=== PATIENT | female | born 1935 | race Caucasian/White ===

== ENCOUNTER 2018-07-15 19:42 | Inpatient (IN) | payer MEDICARE, OTHER ==
[~2018-07-15] VITALS: Ht 162.6 cm; Wt 66.3 kg
[2018-07-15] MEDS ORDERED: PANTOPRAZOLE 80 MG in SODIUM CHLORIDE 0.9% 50 ML IVPB ONE (19:49)
[2018-07-15] MEDS ORDERED: PLEASE ENTER ALLERGIES MC SCH (20:00)
[2018-07-15] MEDS ORDERED: PLEASE ENTER HEIGHT AND WEIGHT MC SCH (20:00)
[2018-07-15] MEDS ORDERED: PANTOPRAZOLE 80 MG in SODIUM CHLORIDE 0.9% 100 ML IV SCH (20:00)
[2018-07-15] MEDS ORDERED: SODIUM CHLORIDE FLUSH 10ML SYR IVF ONE (20:00)
--- NOTE | 2018-07-15 20:00 | NUR ---
BIB [facility] [place] [facility] FOR DARK TARRY STOOLS THAT STARTED THIS AFTERNOON. DENIES ANY VOMITING OF BLOOD. PT SAYS SHE HAS HAD 7 TARRY STOOLS TODAY. SHE GETS HOT AND FEELS LIKE SHE IS GOING TO PASS OUT WITH EACH BOWEL MOVEMENT. PT DOES HAVE BRUISE UNDER LEFT BREAST FROM FALL INTO DRESSER AT HOME.
[2018-07-15] MEDS ORDERED: CLOP75TA52 PO (20:13)
[2018-07-15] MEDS ORDERED: ASPI-515 PO (20:13)
[2018-07-15] MEDS ORDERED: METO25TA35 PO (20:13)
[2018-07-15] MEDS ORDERED: GABA300C10 PO (20:13)
[2018-07-15] MEDS ORDERED: HYDR-3241 PO (20:13)
[2018-07-15] MEDS ORDERED: OMEP-110 PO (20:13)
[2018-07-15] MEDS ORDERED: LEVO88TA4 PO (20:13)
[2018-07-15] MEDS ORDERED: LISI5TAB PO (20:13)
[2018-07-15] MEDS ORDERED: CITA20TA9 PO (20:13)
--- NOTE | 2018-07-15 20:21 | NUR ---
PT HAD MEDIUM DARK LOOSE STOOL. FEELS HOT AND LIGHT HEADED. ASSIST X2 BACK TO BED. PIV PLACED AND PROTONIX DRIP STARTED. VSS. LAB WORK COLLECTED
--- NOTE | 2018-07-15 20:30 | NUR ---
PT MEDICATED PER [facility] WITH PROTONIX BOLUS FOLLOWED BY GTT. VSS. UPDATED ON POC.
[2018-07-15 20:31] LABS: BASOPHILS # (AUTO) 0.11 x10^3/uL (0-0.1); BASOPHILS % (AUTO) 1 % (0-1); EOSINOPHILS # (AUTO) 0.06 x10^3/uL (0-0.4); EOSINOPHILS % (AUTO) 1 % (1-7); LYMPHOCYTES # (AUTO) 1.87 x10^3/uL (1-3.4); LYMPHOCYTES % (AUTO) 16 % (22-44); MD NO; MEAN CORPUSCULAR HEMOGLOBIN 31.1 pg (27.0-34.8); MEAN CORPUSCULAR HGB CONC 32.5 g/dL (32.4-35.8); MEAN CORPUSCULAR VOLUME 95.5 fL (80-100); MEAN PLATELET VOLUME 8.6 fL (7.4-10.4); MONOCYTES # (AUTO) 0.58 x10^3/uL (0.2-0.8); MONOCYTES % (AUTO) 5 % (2-9); NEUTROPHILS # (AUTO) 9.09 x10^3/uL (1.8-6.8); NEUTROPHILS % (AUTO) 78 % (42-75); PLATELET COUNT 274 x10^3/uL (130-400); RED CELL DISTRIBUTION WIDTH 14.5 % (9.6-15.2)
[2018-07-15 20:41] LABS: INTERNATIONAL NORMALIZED RATIO 1.06 (0.93-1.1); PROTHROMBIN TIME 11.1 Seconds (9.6-11.5)
[2018-07-15 20:42] LABS: ALANINE AMINOTRANSFERASE 46 U/L (12-78); ALBUMIN 3.8 g/dL (3.4-5.0); ANION GAP 8 mmol/L (5-15); CALCIUM 8.9 mg/dL (8.5-10.1); CHLORIDE 102 mmol/L (98-107); CREATININE 1.07 mg/dL (0.55-1.02); IRON LEVEL 297 mcg/dL (50-170)
[2018-07-15 20:45] LABS: % IRON SATURATION 91 % (20-55); ALKALINE PHOSPHATASE 103 U/L (45-117); BILIRUBIN,TOTAL 0.3 mg/dL (0.2-1.0); TOTAL IRON BINDING CAPACITY 327 mcg/dL (250-450); TOTAL PROTEIN 7.3 g/dL (6.4-8.2)
--- NOTE | 2018-07-15 21:46 | NUR ---
REPORT GIVEN TO ALEXANDR NYE.
[2018-07-15] MEDS: SODIUM CHLORIDE 0.9% 1,000 ML IV SCH (21:50)
[2018-07-15] MEDS ORDERED: hydrALAzine 20 MG/ML, 1ML IVPush PRN (22:00)
[2018-07-15 22:12] VITALS: BP 111/73
[2018-07-15] MEDS ORDERED: VIT1TABL34 PO (23:11)
[2018-07-16] MEDS: LORazepam 2 MG/ML, 1ML IVPush PRN ×2 (00:05→22:59)
[2018-07-16 02:40] VITALS: BP 101/67
[2018-07-16] MEDS: SODIUM CHLORIDE 0.9% 1,000 ML IV SCH ×2 (05:05→16:49)
[2018-07-16 05:44] LABS: BASOPHILS # (AUTO) 0.06 x10^3/uL (0-0.1); BASOPHILS % (AUTO) 1 % (0-1); EOSINOPHILS # (AUTO) 0.07 x10^3/uL (0-0.4); EOSINOPHILS % (AUTO) 1 % (1-7); LYMPHOCYTES # (AUTO) 2.82 x10^3/uL (1-3.4); LYMPHOCYTES % (AUTO) 31 % (22-44); MD NO; MEAN CORPUSCULAR HEMOGLOBIN 31.3 pg (27.0-34.8); MEAN CORPUSCULAR HGB CONC 32.8 g/dL (32.4-35.8); MEAN CORPUSCULAR VOLUME 95.4 fL (80-100); MEAN PLATELET VOLUME 8.9 fL (7.4-10.4); MONOCYTES % (AUTO) 8 % (2-9); NEUTROPHILS # (AUTO) 5.37 x10^3/uL (1.8-6.8); NEUTROPHILS % (AUTO) 60 % (42-75); PLATELET COUNT 266 x10^3/uL (130-400); RED BLOOD COUNT 3.87 x10^6/uL (3.82-5.3); RED CELL DISTRIBUTION WIDTH 14.8 % (9.6-15.2)
[2018-07-16] MEDS: PANTOPRAZOLE 80 MG in SODIUM CHLORIDE 0.9% 100 ML IV SCH ×2 (05:46→16:49)
[2018-07-16 05:55] LABS: ANION GAP 8 mmol/L (5-15); CALCIUM 8.9 mg/dL (8.5-10.1); CHLORIDE 103 mmol/L (98-107)
[2018-07-16 05:57] LABS: CREATININE 0.99 mg/dL (0.55-1.02)
[2018-07-16 08:30] VITALS: BP 109/67
[2018-07-16] MEDS ORDERED: MIDAZOLAM 1 MG/ML, 5ML ONE (09:15)
[2018-07-16] MEDS ORDERED: FENTANYL PF 100 MCG/2ML ONE (09:15)
[2018-07-16] MEDS ORDERED: EPINEPHRINE SYRINGE 0.1 MG/ML, 10ML ONE (11:20)
[2018-07-16 13:15] VITALS: BP 113/75
[2018-07-16 20:13] VITALS: BP 116/74
[2018-07-16] MEDS ORDERED: GABAPENTIN 400 MG CAPSULE ONE (22:00)
[2018-07-16] MEDS ORDERED: ACETAMINOPHEN 325 MG TABLET ONE (22:01)
[2018-07-16] MEDS: ACETAMINOPHEN 325 MG TABLET PO PRN (22:03)
[2018-07-16] MEDS: GABAPENTIN 400 MG CAPSULE PO SCH (22:03)
[2018-07-17 02:01] VITALS: BP 123/65
[2018-07-17] MEDS: PANTOPRAZOLE 80 MG in SODIUM CHLORIDE 0.9% 100 ML IV SCH ×3 (02:30→22:27)
[2018-07-17] MEDS ORDERED: METOPROLOL TARTRATE 25 MG TABLET PO SCH (06:00)
[2018-07-17] MEDS: LEVOTHYROXINE 88 MCG TABLET PO SCH (06:15)
[2018-07-17 07:07] VITALS: BP 130/73
[2018-07-17] MEDS: CITALOPRAM 20 MG TABLET PO SCH (07:50)
[2018-07-17] MEDS: GABAPENTIN 400 MG CAPSULE PO SCH ×2 (07:51→20:55)
[2018-07-17] MEDS: SODIUM CHLORIDE 0.9% 1,000 ML IV SCH (07:52)
[2018-07-17] MEDS ORDERED: LISINOPRIL 5 MG TABLET PO SCH (09:00)
[2018-07-17 12:55] VITALS: BP 98/51
[2018-07-17] MEDS: METOPROLOL TARTRATE 25 MG TABLET PO SCH (18:00)
[2018-07-17 20:24] VITALS: BP 121/60
[2018-07-17] MEDS: ACETAMINOPHEN 325 MG TABLET PO PRN (20:56)
[2018-07-17] MEDS: LORazepam 2 MG/ML, 1ML IVPush PRN (22:27)
[2018-07-18 04:11] VITALS: BP 125/58
[2018-07-18 05:43] LABS: BASOPHILS # (AUTO) 0.04 x10^3/uL (0-0.1); BASOPHILS % (AUTO) 1 % (0-1); EOSINOPHILS # (AUTO) 0.05 x10^3/uL (0-0.4); EOSINOPHILS % (AUTO) 1 % (1-7); LYMPHOCYTES # (AUTO) 1.25 x10^3/uL (1-3.4); LYMPHOCYTES % (AUTO) 30 % (22-44); MD NO; MEAN CORPUSCULAR HEMOGLOBIN 31.7 pg (27.0-34.8); MEAN CORPUSCULAR HGB CONC 33.2 g/dL (32.4-35.8); MEAN CORPUSCULAR VOLUME 95.7 fL (80-100); MONOCYTES # (AUTO) 0.27 x10^3/uL (0.2-0.8); MONOCYTES % (AUTO) 6 % (2-9); NEUTROPHILS # (AUTO) 2.55 x10^3/uL (1.8-6.8); NEUTROPHILS % (AUTO) 61 % (42-75); PLATELET COUNT 164 x10^3/uL (130-400); RED BLOOD COUNT 3.12 x10^6/uL (3.82-5.3); RED CELL DISTRIBUTION WIDTH 14.7 % (9.6-15.2)
[2018-07-18 05:49] LABS: ANION GAP 5 mmol/L (5-15); CALCIUM 8.2 mg/dL (8.5-10.1); CHLORIDE 101 mmol/L (98-107); CREATININE 0.61 mg/dL (0.55-1.02)
[2018-07-18 06:25] VITALS: BP 123/65
[2018-07-18] MEDS: METOPROLOL TARTRATE 25 MG TABLET PO SCH ×2 (06:28→17:44)
[2018-07-18] MEDS: LEVOTHYROXINE 88 MCG TABLET PO SCH (06:28)
[2018-07-18 07:09] VITALS: BP 120/70
[2018-07-18] MEDS: GABAPENTIN 400 MG CAPSULE PO SCH ×2 (07:48→21:25)
[2018-07-18] MEDS: LISINOPRIL 5 MG TABLET PO SCH (07:48)
[2018-07-18] MEDS: CITALOPRAM 20 MG TABLET PO SCH (07:49)
[2018-07-18] MEDS: PANTOPRAZOLE 80 MG in SODIUM CHLORIDE 0.9% 100 ML IV SCH (08:56)
[2018-07-18 14:04] VITALS: BP 115/66
[2018-07-18] MEDS ORDERED: OMEP-110 PO (15:11)
[2018-07-18] MEDS: OMEPRAZOLE 20 MG CAPSULE.DR PO SCH (17:44)
[2018-07-18 21:04] VITALS: BP 110/45
[2018-07-18] MEDS: LORazepam 2 MG/ML, 1ML IVPush PRN (21:25)
[2018-07-19 01:55] VITALS: BP 112/67
[2018-07-19 05:23] LABS: BASOPHILS # (AUTO) 0.04 x10^3/uL (0-0.1); BASOPHILS % (AUTO) 1 % (0-1); EOSINOPHILS # (AUTO) 0.07 x10^3/uL (0-0.4); EOSINOPHILS % (AUTO) 2 % (1-7); LYMPHOCYTES # (AUTO) 1.33 x10^3/uL (1-3.4); LYMPHOCYTES % (AUTO) 30 % (22-44); MD NO; MEAN CORPUSCULAR HEMOGLOBIN 31.7 pg (27.0-34.8); MEAN CORPUSCULAR VOLUME 95.8 fL (80-100); MEAN PLATELET VOLUME 8.6 fL (7.4-10.4); MONOCYTES # (AUTO) 0.32 x10^3/uL (0.2-0.8); MONOCYTES % (AUTO) 7 % (2-9); NEUTROPHILS # (AUTO) 2.64 x10^3/uL (1.8-6.8); NEUTROPHILS % (AUTO) 60 % (42-75); PLATELET COUNT 144 x10^3/uL (130-400); RED BLOOD COUNT 3.12 x10^6/uL (3.82-5.3); RED CELL DISTRIBUTION WIDTH 14.2 % (9.6-15.2)
[2018-07-19 05:34] LABS: ANION GAP 7 mmol/L (5-15); CALCIUM 8.4 mg/dL (8.5-10.1); CHLORIDE 104 mmol/L (98-107)
[2018-07-19 05:35] LABS: CREATININE 0.76 mg/dL (0.55-1.02)
[2018-07-19] MEDS: METOPROLOL TARTRATE 25 MG TABLET PO SCH (06:09)
[2018-07-19] MEDS: LEVOTHYROXINE 88 MCG TABLET PO SCH (06:09)
[2018-07-19] MEDS: GABAPENTIN 400 MG CAPSULE PO SCH (08:00)
[2018-07-19] MEDS: OMEPRAZOLE 20 MG CAPSULE.DR PO SCH (08:00)
[2018-07-19] MEDS: CITALOPRAM 20 MG TABLET PO SCH (08:01)
[2018-07-19] MEDS: LISINOPRIL 5 MG TABLET PO SCH (08:01)
[2018-07-19 08:23] VITALS: BP 108/57
[2018-07-19 12:04] VITALS: BP 105/67
== END 2018-07-19 13:20 | disposition home or self-care (01) | DRG 377 ==
LOC: ED 20:37 → EDIP 21:05 → 4NOR 22:05 → DCLOUNGE 07-19 12:57
PROVIDERS: ADMIT Internal Medicine; ATTEND Internal Medicine
PROC: 0W3P8ZZ Control Bleeding in Gastrointestinal Tract, Via Natural or Artificial Opening Endoscopic (ICD-10-PCS; principal; 2018-07-16 10:00)
DX: K26.4 Chronic or unspecified duodenal ulcer with hemorrhage (principal); N17.0 Acute kidney failure with tubular necrosis; E87.1 Hypo-osmolality and hyponatremia; E83.110 Hereditary hemochromatosis; E11.42 Type 2 diabetes mellitus with diabetic polyneuropathy; E78.5 Hyperlipidemia, unspecified; G89.29 Other chronic pain; I11.9 Hypertensive heart disease without heart failure; I25.10 Atherosclerotic heart disease of native coronary artery without angina pectoris; K22.2 Esophageal obstruction; Z79.02 Long term (current) use of antithrombotics/antiplatelets; Z79.82 Long term (current) use of aspirin; Z88.8 Allergy status to other drugs, medicaments and biological substances; Z87.891 Personal history of nicotine dependence; Z95.5 Presence of coronary angioplasty implant and graft; Z90.49 Acquired absence of other specified parts of digestive tract
CPT/HCPCS: 36415; 36430; 80048; 80053; 82728; 83540; 83550; 85014; 85018; 85025; 85610; 85730; 86850; 86900; 87338; 93005; 96365; G0378; J2250; J3010; A4648; C9113; J2060; J7030